=== PATIENT | male | born 1965 | race Two or more races ===

== ENCOUNTER 2018-06-06 10:33 | Outpatient (CLI) | payer OTHER | END 2018-06-06 10:37 | disposition home or self-care (01) | LOC: RAD 10:33 | DX: M54.5 Low back pain (principal); M54.2 Cervicalgia ==

== ENCOUNTER 2018-08-27 06:42 | Outpatient (CLI) | payer OTHER | END 2018-08-27 06:53 | disposition home or self-care (01) | LOC: LAB 06:42 | DX: I11.9 Hypertensive heart disease without heart failure (principal); E11.69 Type 2 diabetes mellitus with other specified complication; E78.00 Pure hypercholesterolemia, unspecified ==

== ENCOUNTER 2020-11-22 13:05 | Emergency (ER) | payer OTHER ==
[~2020-11-22] VITALS: Ht 177.8 cm; Wt 90.7 kg
[2020-11-22] MEDS ORDERED: FORTAMET1000 MG (13:51)
[2020-11-22] MEDS ORDERED: GLUCOTROL10 MG (13:51)
[2020-11-22] MEDS ORDERED: ATORVASTATIN CA10 MG (13:51)
[2020-11-22] MEDS ORDERED: SIMVASTATIN10 MG (13:52)
[2020-11-22] MEDS ORDERED: ZOVIRAX800 MG PO (15:31)
[2020-11-22] MEDS ORDERED: KETO10TA2 PO (15:31)
== END 2020-11-22 15:58 | disposition home or self-care (01) ==
LOC: ER 13:05
DX: B02.9 Zoster without complications (principal)

== ENCOUNTER → 2022-05-20 | Outpatient (CLI) | payer OTHER ==
[~2022-05-20] MED LIST: ATORVASTATIN CA10 MG; FORTAMET1000 MG; GLUCOTROL10 MG; KETO10TA2 PO; SIMVASTATIN10 MG; ZOVIRAX800 MG PO
== END | disposition home or self-care (01) ==
LOC: RAD 08:04
PROVIDERS: ATTEND Podiatrist Foot Surgery
DX: M77.31 Calcaneal spur, right foot (principal); M77.32 Calcaneal spur, left foot; N31.1 Reflex neuropathic bladder, not elsewhere classified; N20.0 Calculus of kidney

== ENCOUNTER 2022-07-12 09:26 | Outpatient (CLI) | payer OTHER | END 2022-07-12 09:28 | disposition home or self-care (01) | LOC: RAD 09:26 | PROVIDERS: ATTEND Internal Medicine | DX: M54.50 Low back pain, unspecified (principal) ==

== ENCOUNTER 2022-11-30 14:44 | Outpatient (CLI) | payer OTHER | END 2022-11-30 14:45 | disposition home or self-care (01) | LOC: LAB 14:44 | PROVIDERS: ATTEND Urology | DX: N40.1 Benign prostatic hyperplasia with lower urinary tract symptoms (principal); R97.20 Elevated prostate specific antigen [PSA] ==

== ENCOUNTER 2023-04-14 08:53 | Outpatient (CLI) | payer OTHER ==
[2023-04-14 09:48] LABS: HEMATOCRIT 40.6 % (39.0-48.0); HEMOGLOBIN 13.9 g/dL (13-16.00); MEAN CELL VOLUME 79.4 fL (80.0-100.00); MEAN CORPUSCULAR HEMOGLOBIN 27.2 pg (27.00-32.0); MEAN CORPUSCULAR HGB CONC 34.3 g/dl (32.0-36.0); PLATELET COUNT 158 K/uL (150-450); RED BLOOD COUNT 5.11 M/uL (4.00-6.00); RED CELL DISTRIBUTION WIDTH 14.6 % (11.5-14.5)
[2023-04-14 10:33] LABS: ALBUMIN 3.7 gm/dL (3.4-5.0); BILIRUBIN TOTAL 1.16 mg/dL (0.3-1.2); CALCIUM 8.8 mg/dL (8.5-10.1); CHOL HDL RATIO 3.1 (0-5.0); CREATININE SERUM 0.99 mg/dL (0.70-1.30); GFR 77.64; GLOBULINA 3.8 G/DL (2.4-3.5); POTASSIUM 4.04 mEq/L (3.5-5.1); TOTAL PROTEIN 7.5 gm/dL (6.4-8.2)
== END 2023-04-14 08:56 | disposition home or self-care (01) ==
LOC: LAB 08:53
DX: E78.00 Pure hypercholesterolemia, unspecified (principal)

== ENCOUNTER 2023-04-14 09:02 | Outpatient (CLI) | payer OTHER | END 2023-04-14 09:10 | disposition home or self-care (01) | LOC: SONOGRAMA 09:02 | PROVIDERS: ATTEND Urology | DX: R33.9 Retention of urine, unspecified (principal) ==

== ENCOUNTER → 2025-06-06 | Outpatient (CLI) | payer OTHER | END | disposition home or self-care (01) | LOC: RAD 11:17 | DX: G47.30 Sleep apnea, unspecified (principal); I10 Essential (primary) hypertension; J31.2 Chronic pharyngitis ==